=== PATIENT | female | born 1995 | race Caucasian/White ===

== ENCOUNTER 2016-09-26 17:53 | Emergency (ER) | payer MEDICAID | END 2016-09-26 18:33 | disposition home or self-care (01) | LOC: ED 17:53 | DX: N93.0 Postcoital and contact bleeding (principal) | CPT/HCPCS: J0696 ==

== ENCOUNTER 2016-11-30 13:31 | Emergency (ER) | payer MEDICAID ==
[2016-11-30] MEDS ORDERED: IBU800 M1 PO (14:57)
[2016-11-30] MEDS ORDERED: AMOXICILLIN875 MG PO (14:57)
[2016-11-30 15:01] VITALS: BP 86/52
== END 2016-11-30 15:35 | disposition home or self-care (01) ==
LOC: ED 13:31
DX: H66.93 Otitis media, unspecified, bilateral (principal); E87.6 Hypokalemia; R42 Dizziness and giddiness; Z32.02 Encounter for pregnancy test, result negative

== ENCOUNTER 2016-12-29 10:45 | Emergency (ER) | payer MEDICAID ==
[~2016-12-29 10:45] MED LIST: AMOXICILLIN875 MG PO; IBU800 M1 PO
[2016-12-29] MEDS ORDERED: KETOROLAC10 MG PO (11:35)
[2016-12-29 11:56] VITALS: BP 124/78
== END 2016-12-29 11:53 | disposition home or self-care (01) ==
LOC: ED 10:45
DX: M26.602 Left temporomandibular joint disorder, unspecified (principal)

== ENCOUNTER 2017-08-01 21:57 | Emergency (ER) | payer MEDICAID ==
[~2017-08-01] VITALS: Ht 162.6 cm; Wt 64.7 kg
[~2017-08-01 21:57] MED LIST changes: +KETOROLAC10 MG PO
[2017-08-01 22:55] LABS: EOS # 0.3 (0.04-0.40); EOS % 3.1 % (1.0-5.0); HEMATOCRIT 37.5 % (37.0-47.0); HEMOGLOBIN 12.4 g/dL (12.5-16.0); LYMPH# 2.9 (1.50-4.00); MEAN CELL VOLUME 92 fl (78-100); MEAN CORPUSCULAR HEMOGLOBIN 30 pg (27-31); MEAN CORPUSCULAR HGB CONC 33 g/dL (33-37); MEAN PLATELET VOLUME 9.4 fl (7.4-10.4); NEU # 4.5 (1.40-6.50); PLATELET COUNT 384 K/mm3 (130-400); RED BLOOD COUNT 4.09 M/mm3 (4.10-5.30); WHITE BLOOD COUNT 8.7 K/mm3 (4.8-10.8)
[2017-08-01] MEDS ORDERED: CYCLOBENZAPRINE10 M1 PO (23:18)
[2017-08-01 23:36] VITALS: BP 97/56
== END 2017-08-01 23:28 | disposition home or self-care (01) ==
LOC: ED 21:57
PROVIDERS: Nurse Practitioner Family
DX: M26.623 Arthralgia of bilateral temporomandibular joint (principal); R59.0 Localized enlarged lymph nodes; F17.210 Nicotine dependence, cigarettes, uncomplicated
CPT/HCPCS: J1885

== ENCOUNTER 2021-09-04 12:49 | Emergency (ER) | payer MEDICAID ==
[~2021-09-04 12:49] MED LIST changes: +CYCLOBENZAPRINE10 M1 PO
[2021-09-04] MEDS ORDERED: IBUPROFEN600 M1 PO (12:59)
[2021-09-04 13:37] LABS: BASO # 0.01 K/mm3 (0.02-0.10); EOS # 0.16 K/mm3 (0.04-0.40); EOS % 1.8 % (1.0-5.0); HEMATOCRIT 34.9 % (37.0-47.0); HEMOGLOBIN 11.4 g/dL (12.5-16.0); LYMPH# 2.24 K/mm3 (1.50-4.00); MEAN CELL VOLUME 90 fl (78-100); MEAN CORPUSCULAR HEMOGLOBIN 30 pg (27-31); MEAN CORPUSCULAR HGB CONC 33 g/dL (33-37); MEAN PLATELET VOLUME 9.8 fl (7.4-10.4); MONO # 0.43 K/mm3 (0.20-0.80); NEU # 5.81 K/mm3 (1.40-6.50); PLATELET COUNT 288 K/mm3 (130-400); RED BLOOD COUNT 3.87 M/mm3 (4.10-5.30); WHITE BLOOD COUNT 8.7 K/mm3 (4.8-10.8)
[2021-09-04 13:48] LABS: ALBUMIN 3.5 g/dL (3.5-5.0); POTASSIUM 3.9 mmol/L (3.5-5.1); SODIUM 142 mmol/L (136-145)
[2021-09-04 13:49] LABS: CALCIUM 8.6 mg/dL (8.3-10.5)
[2021-09-04 13:50] LABS: GLUCOSE 111 mg/dL (65-105); TOTAL PROTEIN 6.6 g/dL (6.4-8.3)
[2021-09-04 13:51] LABS: CARBON DIOXIDE 22 mmol/L (22-29)
[2021-09-04 13:52] LABS: TOTAL BILIRUBIN 0.3 mg/dL (0.2-1.2)
[2021-09-04 13:54] LABS: PARTIAL THROMBOPLASTIN TIME 26.6 SECONDS (21.0-32.0)
[2021-09-04 13:56] LABS: AST-SGOT 16 U/L (5-34); D-DIMER 0.86 mg/L FEU (0.15-0.50)
[2021-09-04 13:57] LABS: ALT/SGPT 18 U/L (0-55)
[2021-09-04 14:04] LABS: TROPONIN-I < 0.030 ng/mL (<0.030)
[2021-09-04] MEDS ORDERED: PREDNISONE20 M1 PO (14:44)
[2021-09-04 15:38] VITALS: BP 112/69
== END 2021-09-04 15:17 | disposition home or self-care (01) ==
LOC: ED 12:49
PROVIDERS: Family Medicine
DX: U07.1 COVID-19 (principal); M94.0 Chondrocostal junction syndrome [Tietze]; D50.9 Iron deficiency anemia, unspecified; R79.1 Abnormal coagulation profile
CPT/HCPCS: J1885; Q9967

== ENCOUNTER → 2021-11-17 | Outpatient (CLI) | payer MEDICAID ==
[~2021-11-17] MED LIST changes: +IBUPROFEN600 M1 PO; +PREDNISONE20 M1 PO
== END ==
LOC: LAB 16:30
DX: R07.0 Pain in throat (principal); Z85.850 Personal history of malignant neoplasm of thyroid

== ENCOUNTER → 2021-12-27 | Outpatient (CLI) | payer MEDICAID ==
[2021-12-27 18:06] LABS: ALBUMIN 4.3 g/dL (3.5-5.0); POTASSIUM 4.2 mmol/L (3.5-5.1)
[2021-12-27 18:07] LABS: CALCIUM 9.9 mg/dL (8.3-10.5)
[2021-12-27 18:08] LABS: TOTAL PROTEIN 7.3 g/dL (6.4-8.3)
[2021-12-27 18:10] LABS: TOTAL BILIRUBIN 0.2 mg/dL (0.2-1.2)
[2021-12-27 18:22] LABS: BASO # 0.02 K/mm3 (0.02-0.10); EOS # 0.21 K/mm3 (0.04-0.40); EOS % 2.4 % (1.0-5.0); HEMATOCRIT 38.1 % (37.0-47.0); LYMPH# 3.36 K/mm3 (1.50-4.00); MEAN CELL VOLUME 90 fl (78-100); MEAN CORPUSCULAR HEMOGLOBIN 28 pg (27-31); MEAN CORPUSCULAR HGB CONC 32 g/dL (33-37); MEAN PLATELET VOLUME 10.5 fl (7.4-10.4); MONO # 0.48 K/mm3 (0.20-0.80); NEU # 4.55 K/mm3 (1.40-6.50); PLATELET COUNT 397 K/mm3 (130-400); RED BLOOD COUNT 4.24 M/mm3 (4.10-5.30); RED CELL DISTRIBUTION WIDTH 14.1 % (11.5-14.5); WHITE BLOOD COUNT 8.6 K/mm3 (4.8-10.8)
[2021-12-27 20:39] LABS: ERYTHROCYTE SEDIMENTATION RATE 7 mm/hr (0-20)
== END ==
LOC: LAB 17:08
PROVIDERS: Physician Assistant
DX: Z00.00 Encounter for general adult medical examination without abnormal findings (principal); R59.0 Localized enlarged lymph nodes